=== PATIENT | female | born 1975 | race Caucasian/White ===

== ENCOUNTER 2021-11-11 18:31 | Emergency (ER) | payer BC ==
[~2021-11-11 18:31] MED LIST: NORCO 5-325 TA1 EACH PO; Voltaren Gel 1% TOP
[2021-11-11] MEDS ORDERED: PERCOCET 5/325 T1 EA PO (21:06)
[2021-11-11] MEDS ORDERED: IBUPROFEN600 MG PO (21:06)
== END 2021-11-11 21:21 | disposition home or self-care (01) ==
LOC: ER1 18:31
DX: M72.2 Plantar fascial fibromatosis (principal); I10 Essential (primary) hypertension; E03.9 Hypothyroidism, unspecified
CPT/HCPCS: 73610; 73630; 99283